=== PATIENT | male | born 1990 | race African-American/Black ===

== ENCOUNTER 2016-05-30 14:01 | Emergency (ER) | payer SELFPAY ==
[~2016-05-30] VITALS: Ht 172.7 cm; Wt 77.1 kg
[2016-05-30] MEDS ORDERED: NKM (14:24)
[2016-05-30] MEDS ORDERED: Norco 5mg/325mg tab ORAL ONE (14:30)
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
[2016-05-30] MEDS ORDERED: TRAMADOL HCL50 MG ORAL (15:44)
[2016-05-30] MEDS ORDERED: IBUPROFEN600 MG ORAL (15:44)
[2016-05-30 15:52] VITALS: BP 132/72
[2016-05-30 16:06] VITALS: BP 132/72
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
== END 2016-05-30 16:09 | disposition home or self-care (01) ==
LOC: EMR 14:23
DX: S39.012A Strain of muscle, fascia and tendon of lower back, initial encounter (principal); S40.011A Contusion of right shoulder, initial encounter; V47.0XXA Car driver injured in collision with fixed or stationary object in nontraffic accident, initial encounter; Y93.9 Activity, unspecified; Y92.410 Unspecified street and highway as the place of occurrence of the external cause; Z91.041 Radiographic dye allergy status; J45.909 Unspecified asthma, uncomplicated
CPT/HCPCS: 72020; 99284